=== PATIENT | male | born 1960 | race Caucasian/White ===

== ENCOUNTER 2023-04-11 12:46 | Emergency (ER) | payer SELFPAY ==
[~2023-04-11] VITALS: Ht 170.2 cm; Wt 64.0 kg
[2023-04-11 13:10] VITALS: O2SAT 100
[2023-04-11] MEDS ORDERED: ATROPINE SULFATE 1MG/ML VIAL IV ONE (13:45)
[2023-04-11] MEDS ORDERED: CLONIDINE 0.2MG TABLET PO ONE (14:00)
[2023-04-11 14:23] LABS: BASOPHILS % 0.8 % (0.0-2.0); EOSINOPHILS % 1.2 % (0.0-5.0); HEMATOCRIT. 38.7 % (42.0-52.0); HEMOGLOBIN. 13.1 g/dL (14.0-18.0); LYMPHOCYTES % 32.2 % (20.0-50.0); MEAN CORPUSCULAR HEMOGLOBIN 30.3 pg (28.0-32.0); MEAN CORPUSCULAR VOLUME 89.8 fL (80.0-94.0); MEAN PLATELET VOLUME 9.5 fl (7.4-10.4); MONOCYTES % 8.1 % (2.0-8.0); NEUTROPHILS % 57.7 % (40.0-76.0); PLATELET 264 x1000/uL (130-400); RED BLOOD CELL COUNT 4.31 mill/uL (4.7-6.1); RED CELL DISTRIBUTION WIDTH 13.7 % (11.6-14.6)
[2023-04-11 14:30] LABS: CHLORIDE 107 mEq/L (98-107)
[2023-04-11] MEDS ORDERED: AMLO5TAB88 MT (16:19)
[2023-04-11 16:48] VITALS: BP 166/91; PULSE 57; RESP 13; TEMP 97.9
== END 2023-04-11 16:47 | disposition home or self-care (01) ==
LOC: ER 12:46
DX: I16.0 Hypertensive urgency (principal); I10 Essential (primary) hypertension; Z90.49 Acquired absence of other specified parts of digestive tract
CPT/HCPCS: 80053; 85025; 84484; 36415; 71045; 96374; 99291; J0461; Z7610 ×3